=== PATIENT | female | born 1965 | race Caucasian/White ===

== ENCOUNTER → 2017-08-24 | Outpatient (CLI) | payer OTHER | LOC: M.ULTRA 13:45 | DX: R09.89 Other specified symptoms and signs involving the circulatory and respiratory systems (principal) ==

== ENCOUNTER → 2019-03-05 | Outpatient (CLI) | payer OTHER | LOC: M.RAD 13:10 | DX: Z12.31 Encounter for screening mammogram for malignant neoplasm of breast (principal) ==

== ENCOUNTER → 2019-03-08 | Outpatient (CLI) | payer OTHER | LOC: M.RAD 13:00 | DX: R92.0 Mammographic microcalcification found on diagnostic imaging of breast (principal) ==

== ENCOUNTER 2020-11-23 13:57 | Emergency (ER) | payer OTHER ==
[~2020-11-23] VITALS: Ht 172.7 cm; Wt 72.6 kg
[2020-11-23] MEDS ORDERED: ABILIFY10 MG PO (14:14)
[2020-11-23] MEDS ORDERED: XANAX2 MG PO (14:15)
[2020-11-23 14:26] VITALS: BP 119/68
== END 2020-11-23 14:27 | disposition home or self-care (01) ==
LOC: M.ERS 13:57
DX: T16.2XXA Foreign body in left ear, initial encounter (principal); K58.9 Irritable bowel syndrome, unspecified; Z79.2 Long term (current) use of antibiotics; W45.8XXA Other foreign body or object entering through skin, initial encounter; Y93.89 Activity, other specified; Y92.89 Other specified places as the place of occurrence of the external cause; Y99.8 Other external cause status

== ENCOUNTER → 2021-01-12 | Outpatient (CLI) | payer OTHER ==
[~2021-01-12] MED LIST: ABILIFY10 MG PO; XANAX2 MG PO
== END ==
LOC: M.ULTRA 09:30
PROVIDERS: ATTEND Specialist
DX: R19.7 Diarrhea, unspecified (principal); R10.9 Unspecified abdominal pain; R53.83 Other fatigue